=== PATIENT | male | born 1965 | race Caucasian/White ===

== ENCOUNTER 2017-03-14 13:02 | Emergency (ER) | payer MEDICAID, OTHER ==
[~2017-03-14] VITALS: Ht 170.2 cm; Wt 115.0 kg
[~2017-03-14 13:02] MED LIST: ACET500T71 PO; AMIT25TA PO; CIPR500T87 PO; TRAM50TA2 PO
[2017-03-14] MEDS ORDERED: PLEASE ENTER HEIGHT AND WEIGHT MC SCH (13:30)
[2017-03-14] MEDS ORDERED: SODIUM CHLORIDE 0.9% 1,000ML IVBOLUS ONE (13:30)
[2017-03-14] MEDS ORDERED: SODIUM CHLORIDE FLUSH 10ML SYR IVF ONE (13:30)
[2017-03-14 13:51] LABS: ASPARTATE AMINO TRANSFERASE 23 U/L (15-37); BLOOD UREA NITROGEN 16 mg/dL (7-18)
[2017-03-14 13:55] LABS: IS PT STATUS REG ER OR PRE ER? YES
[2017-03-14 16:10] VITALS: BP 127/72
== END 2017-03-14 16:12 | disposition home or self-care (01) ==
LOC: ED 13:28
DX: R53.1 Weakness (principal)
CPT/HCPCS: 36415; 74020; 80053; 83690; 84484; 85025; 93005; 96360; 96361; 99285; J7030

== ENCOUNTER → 2018-03-13 | Outpatient (CLI) | payer OTHER ==
[~2018-03-13] MED LIST changes: +OMNIPAQUE 350 MG/ML, 100ML BOTTLE ONE
== END ==
LOC: RAD 13:35
PROVIDERS: ATTEND Family Medicine
DX: K57.92 Diverticulitis of intestine, part unspecified, without perforation or abscess without bleeding (principal)
CPT/HCPCS: 74177; Q9967